=== PATIENT | male | born 1955 | race Caucasian/White ===

== ENCOUNTER 2023-09-06 16:56 | Outpatient (OUT) | payer MEDICARE, SELFPAY ==
--- NOTE | 2023-09-06 | XR_ITS ---
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 FINDINGS: BONES: Reversal of normal lordotic curvature of lower cervical spine. Minimal anterior listhesis of C4 on 5. Multilevel moderate degenerative facet arthropathy. DISC SPACES: Degenerative endplate changes and moderate disc space narrowing C5-C6 and C6-C7 with posterior disc osteophyte complexes likely causing foramen and central canal narrowing. PARASPINOUS: Negative. No paraspinous abnormality is seen. OTHER: Negative. XR/XR cervical spine 2-3V IMPRESSION: 1. Moderate to marked degenerative changes of lower cervical spine. Electronically authenticated by: KYARA WATSON Date: 09/07/2023 06:26
--- NOTE | 2023-09-06 | XR_ITS ---
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 FINDINGS: RIGHT FINDINGS: BONES: Mild degenerative changes of the first carpal-metacarpal joint. SOFT TISSUES: No visible soft tissue swelling. OTHER: Negative. LEFT FINDINGS: BONES: Mild degenerative changes of the first carpal-metacarpal joint. SOFT TISSUES: No visible soft tissue swelling. OTHER: Negative. XR/XR hand JULISSA min 3v IMPRESSION: RIGHT CONCLUSION: No suspicious bone abnormality. Minimal degenerative changes favoring osteoarthritis. LEFT CONCLUSION: No suspicious bone abnormality. Mild degenerative changes favoring osteoarthritis. Electronically authenticated by: KYARA WATSON Date: 09/07/2023 06:23
[2023-09-06 17:31] LABS: Erythrocyte Sedimentation Rate 39 mm/hr (<=20)
[2023-09-06 17:35] LABS: Alanine Aminotransferase 22 U/L (16-63); Albumin Globulin Ratio 0.9; Albumin Level 3.9 g/dL (3.4-5.0); Alkaline Phosphatase 103 U/L (46-116); Anion Gap 13.8; Aspartate Amino Transferase 17 U/L (15-37); Bilirubin Total 0.6 mg/dL (0.2-1.0); C Reactive Protein 0.93 mg/dL (<=0.50); Calcium 8.9 mg/dL (8.5-10.1); Carbon Dioxide 28.1 mmol/L (21.0-32.0); Chloride 101 mmol/L (98-107); Estimated GFR (African America >60 (>=60); Estimated GFR (Non-African Ame >60 (>=60); Globulin 4.2 g/dL; Glucose 113 mg/dL (74-106); Potassium 3.9 mmol/L (3.5-5.1); Sodium 139 mmol/L (136-145); Total Protein 8.1 g/dL (6.4-8.2)
[2023-09-08 14:10] LABS: Rheumatoid Factor (RF) 271.3 IU/mL (<14.0)
[2023-09-10 15:10] LABS: Antinuclear Antibodies, IFA Positive (.)
== END 2023-09-06 16:57 | disposition home or self-care (01) ==
LOC: LAB 17:00
PROVIDERS: PCP Internal Medicine; Visit Provider Internal Medicine
DX: M06.4 Inflammatory polyarthropathy (principal); M50.30 Other cervical disc degeneration, unspecified cervical region
CPT/HCPCS: 36415; 72040; 73130; 80053; 85652; 86038; 86140; 86431